=== PATIENT | female | born 1945 | race Caucasian/White ===

== ENCOUNTER → 2020-12-02 | Outpatient (CLI) | payer OTHER ==
[~2020-12-02] MED LIST: CALCIUM 600 +1 EAC8 PO; FENOFIBRATE160 MG PO; FISH OIL 1,0001 EAC9 PO; KLOR-CON 10 ER10 MEQ PO; LASIX 20 MG TAB20 MG PO; LISINOPRIL-HCT1 EAC1 PO; NIACIN 100MG T100 M1 PO; ONE-DAILY MULT1 EAC1 PO; PRESERVISION T1 EACH PO; SIMVASTATIN40 MG PO; VITAMIN D325 MC5 PO; XANAX 0.5 MG0.5 MG PO
[2020-12-02 10:19] LABS: CALCIUM 11.2 mg/dL (8.5-10.1); CREATININE 0.9 mg/dL (0.6-1.0); POTASSIUM 3.5 mmol/L (3.5-5.1)
--- NOTE | 2020-12-02 16:27 | EKG ---
[place] [address] [facility] [place] [address] ELECTROCARDIOGRAM REPORT Name: KAMRYN FLORES Room #: [facility] J LUIS EnnisWhit#: [id number] Admission: 12/02/20 Attend Phys: Duane Aguilar MD Discharge: Date of : 41 Report #: [id number] [facility] Test Date: 2020-12-02 Test Time: 10:08:02 Pat Name: KAMRYN FLORES Department: Room: Gender: F Outside Sales Consultant: [id number] : 1945 Requested By: Duane Aguilar Order Number: [id number] MD: Raman Jade Measurements Intervals [place] Rate: 70 P: 46 AL: 152 QRS: -19 QRSD: 99 T: 53 QT: 408 QTc: 441 Interpretive Statements Sinus rhythm Poor R wave progression Compared to ECG 01/08/2007 10:21:32 No significant change was found in Electronically Signed On 12-02-2020 16:27:06 CDT by Raman Jade [email or web address] <ELECTRONICALLY SIGNED> By: Raman Jade MD, [facility] 12/02/20 1627 1008 [id number] Raman Jade MD, FACC /EPI
== END ==
LOC: LAB 08:18
PROVIDERS: Student in an Organized Health Care Education/Training Program; ATTEND Orthopaedic Surgery
DX: Z01.812 Encounter for preprocedural laboratory examination (principal); Z20.822 Contact with and (suspected) exposure to COVID-19

== ENCOUNTER 2020-12-03 06:04 | Day surgery (SDC) | payer OTHER ==
[~2020-12-03] VITALS: Ht 157.5 cm; Wt 68.9 kg
[2020-12-03 06:40] VITALS: BP 138/65
[2020-12-03 10:10] VITALS: BP 138/65
--- NOTE | 2020-12-07 10:10 | O ---
[facility] [place] [address] OPERATIVE REPORT Name: KAMRYN FLORES Room #: DEP [facility]#: [id number] Admission: 12/03/20 Attend Phys: Duane Aguilar MD Discharge: 12/03/20 Date of : 41 Report #: [id number] THIS REPORT FOR: cc: Serina Davalos MD, Jennifer L MD Clymer, David J. MD ~ DATE OF SERVICE: 12/03/2020 PREOPERATIVE DIAGNOSIS: Left distal humerus intraarticular fracture. POSTOPERATIVE DIAGNOSIS: Left distal humerus intraarticular fracture. PROCEDURE: Open reduction and internal fixation of left distal humerus fracture. SURGEON: Duane Aguilar MD INDICATIONS: This frail 75-year-old female fell injuring the left elbow. X-rays reveal an intraarticular fracture with marked displacement of the lateral epicondyle and mild comminution and nondisplaced fractures extending more medially. We have discussed preoperatively treatment options including risks and benefits and elected to go ahead with surgical repair. DESCRIPTION OF PROCEDURE: The patient was taken to the operating room where she was placed under general anesthesia. Prophylactic intravenous antibiotics were administered. The left arm was meticulously prepped and draped and an Esmarch bandage used to exsanguinate the arm and then left at the upper arm as a gentle tourniquet. A lateral skin incision was made. This was carried through adipose tissues and fascia to expose the lateral border of the distal humerus. The lateral condyle was found to be fractured and displaced with only mild comminution at the posterior aspect. The large lateral condyle fragment was reduced into a very satisfactory position and held temporarily with several smooth pins. C-arm was used to visualize the fracture and the medial aspect seemed to be stable and in acceptable position. I felt lateral plating would probably be adequate to control the fracture. An Acumed 6-hole lateral distal humeral condylar plate was selected. This was applied and secured temporarily with smooth K wires and then 6 screws were applied. The three most distal screws were applied with a locking technique with the plate and 3 proximal screws were placed with nonlocking technique. Each of the screws seemed to have satisfactory purchase and the fracture seems to be reduced and stable. The screws extended slightly anteriorly on the medial aspect, but seemed to have satisfactory purchase and position when viewed with C-arm views. At this point, the Esmarch tourniquet was removed. The wound was copiously irrigated. Good hemostasis was established. The deeper tissues were closed [address] [address] OPERATIVE REPORT Name: KAMRYN FLORES Room #: DEP [facility]#: [id number] Admission: 12/03/20 Attend Phys: Duane Aguilar MD Discharge: 12/03/20 Date of : 41 Report #: [id number] with multiple 2-0 Monocryl sutures. The skin was closed with skin stefania. A sterile dressing was applied. The patient was then awakened and returned to recovery room in good condition. <ELECTRONICALLY SIGNED> By: Duane Aguilar MD 12/07/20 1010 [id number] Duane Aguilar MD /nt
== END 2020-12-03 11:50 | disposition home or self-care (01) ==
LOC: OR → TBA 06:04 → OR 06:04
PROVIDERS: ATTEND Orthopaedic Surgery
DX: S42.452A Displaced fracture of lateral condyle of left humerus, initial encounter for closed fracture (principal); I10 Essential (primary) hypertension; E11.9 Type 2 diabetes mellitus without complications; E78.00 Pure hypercholesterolemia, unspecified; Z98.890 Other specified postprocedural states; Z79.899 Other long term (current) drug therapy; Z87.891 Personal history of nicotine dependence; Z85.3 Personal history of malignant neoplasm of breast; Z85.72 Personal history of non-Hodgkin lymphomas; Z90.710 Acquired absence of both cervix and uterus; Z98.42 Cataract extraction status, left eye; Z88.8 Allergy status to other drugs, medicaments and biological substances; X58.XXXA Exposure to other specified factors, initial encounter; Y93.89 Activity, other specified; Y92.89 Other specified places as the place of occurrence of the external cause; Y99.8 Other external cause status
CPT/HCPCS: 50010; 50101; 50386; 50417; 51412; 56525; 58648; 58649; 58653; 58655; 58658; 58669; 58670; 58671; 58672; 62110; 62900; 70005